=== PATIENT | female | born 1955 | race Two or more races ===

== ENCOUNTER 2024-02-05 19:51 | Inpatient (IN) | payer MEDICARE, OTHER ==
[~2024-02-05] VITALS: Ht 162.6 cm; Wt 88.1 kg
[2024-02-05 20:34] LABS: BASOPHILS # (AUTO) 0.1 K/uL (0.0-0.2); BASOPHILS % (AUTO) 1.2 % (0.0-2.0); EOSINOPHILS # (AUTO) 0.3 K/uL (0.0-0.7); EOSINOPHILS % (AUTO) 2.4 % (0.0-6.0); HEMATOCRIT 36 % (33-45); HEMOGLOBIN 12.2 g/dL (11.5-14.8); LYMPHOCYTES # (AUTO) 2.7 K/uL (0.8-4.8); LYMPHOCYTES % (AUTO) 24.9 % (20.0-44.0); MEAN CORPUSCULAR HEMOGLOBIN 32 PG (26.0-33.0); MEAN CORPUSCULAR HGB CONC 35 g/dl (31.0-36.0); MEAN CORPUSCULAR VOLUME 92 fL (82-100); MONOCYTES # (AUTO) 0.7 K/uL (0.1-1.30); MONOCYTES % (AUTO) 6.7 % (2.0-12.0); NEUTROPHILS # (AUTO) 7.1 K/uL (1.8-8.9); NEUTROPHILS % (AUTO) 64.8 % (43.0-81.0); PLATELET COUNT (AUTO) 303 K/uL (150-450); RED BLOOD CELL COUNT(AUTO) 3.86 MIL/uL (4.0-5.2); RED CELL DISTRIBUTION WIDTH 14.6 % (11.5-15.0); WHITE BLOOD COUNT (AUTO) 10.9 K/uL (4.3-11.0)
[2024-02-05 20:42] LABS: CALCIUM, SERUM 8.9 mg/dL (8.5-10.1); CARBON DIOXIDE 25 mmol/L (21-32); CHLORIDE 96 mmol/L (98-107); GLUCOSE 112 mg/dL (74-106); POTASSIUM 5.4 mmol/L (3.5-5.1); SODIUM SERUM 129 mmol/L (136-145); UREA NITROGEN, BLOOD 26 mg/dL (7-18)
[2024-02-05 20:55] LABS: ALANINE AMINOTRANSFERASE 22 U/L (12-78); ALBUMIN 3.5 g/dL (3.4-5.0); ALKALINE PHOSPHATASE 67 U/L (46-116); ASPARTATE AMINOTRANSFERASE 31 U/L (15-37); BILIRUBIN,DIRECT 0.1 mg/dL (0.0-0.2); BILIRUBIN,TOTAL 0.5 mg/dL (0.2-1.0); NT-PRO BNP 1044 pg/mL (0-125); TOTAL PROTEIN, SERUM 6.6 g/dL (6.4-8.2)
[2024-02-05] MEDS ORDERED: FUROSEMIDE 40 MG/4 ML VIAL ONE (21:24)
[2024-02-05] MEDS ORDERED: SODIUM ZIRCONIUM CYCLOSILICATE 10 GM POWD.PACK ONE (21:24)
[2024-02-05] MEDS: ALBUTEROL FS 2.5 MG/3 ML VIAL.NEB NEB ONE (21:30)
[2024-02-05] MEDS: FUROSEMIDE 40 MG/4 ML VIAL IV ONE (21:38)
[2024-02-05] MEDS: SODIUM ZIRCONIUM CYCLOSILICATE 10 GM POWD.PACK PO ONE (21:38)
[2024-02-05] MEDS ORDERED: ALBUTEROL FS 2.5 MG/3 ML VIAL.NEB ONE (21:57)
[2024-02-05 22:00] LABS: APPEARANCE,URINE CLEAR (CLEAR); BILIRUBIN,URINE NEGATIVE (NEGATIVE); BLOOD, URINE NEGATIVE Ery/uL (NEGATIVE); COLOR,URINE YELLOW (YELLOW); KETONES,URINE NEGATIVE (NEGATIVE); LEUKOCYTE ESTERASE ,URINE NEGATIVE (NEGATIVE); NITRITE, URINE NEGATIVE (NEGATIVE); PROTEIN,URINE NEGATIVE (NEGATIVE); UGLUCOSE NEGATIVE (NEGATIVE); UROBILINOGEN,URINE 0.2 EU/dL (0.2)
[2024-02-05 22:05] VITALS: O2SAT 99
[2024-02-05 22:15] VITALS: O2SAT 100
[2024-02-05] MEDS: IV NS 0.9% 1,000 ML BAG IV ONE (22:27)
[2024-02-06] VITALS (8 sets, daily range): BP systolic 129–160; BP diastolic 57–81; TEMP 97.7–98.2; O2SAT 98–100
[2024-02-06] MEDS ORDERED: METOPROLOL TARTRATE INJ 5 MG/5 ML AMPUL IVP SCH ×2 (01:30→02:00)
[2024-02-06] MEDS ORDERED: MAG HYDROX/AL HYDROX/SIMETH 30 ML UDC PO PRN (02:00)
[2024-02-06] MEDS ORDERED: ASPI-1420 PO (02:50)
[2024-02-06] MEDS ORDERED: ATOR80TA PO (02:50)
[2024-02-06] MEDS ORDERED: FAMO20TA8 PO (02:50)
[2024-02-06] MEDS ORDERED: CLON-418 PO (02:50)
[2024-02-06] MEDS ORDERED: CARV25TA2 PO (02:50)
[2024-02-06] MEDS ORDERED: VALS320T2 PO (02:50)
[2024-02-06] MEDS ORDERED: HYDR-4077 PO (02:50)
[2024-02-06] MEDS ORDERED: METOPROLOL TARTRATE 50 MG TABLET PO SCH (03:00)
[2024-02-06] MEDS: ENOXAPARIN SODIUM 100 MG/ML DISP.SYRIN SQ SCH (03:06)
[2024-02-06] MEDS: ACETAMINOPHEN 325 MG TABLET PO PRN (06:51)
[2024-02-06 07:01] LABS: BASOPHILS # (AUTO) 0.1 K/uL (0.0-0.2); BASOPHILS % (AUTO) 0.8 % (0.0-2.0); EOSINOPHILS # (AUTO) 0.2 K/uL (0.0-0.7); EOSINOPHILS % (AUTO) 2.1 % (0.0-6.0); HEMATOCRIT 37 % (33-45); HEMOGLOBIN 12.4 g/dL (11.5-14.8); LYMPHOCYTES # (AUTO) 2.7 K/uL (0.8-4.8); LYMPHOCYTES % (AUTO) 23.4 % (20.0-44.0); MEAN CORPUSCULAR HEMOGLOBIN 31 PG (26.0-33.0); MEAN CORPUSCULAR HGB CONC 34 g/dl (31.0-36.0); MEAN CORPUSCULAR VOLUME 91 fL (82-100); MONOCYTES # (AUTO) 0.8 K/uL (0.1-1.30); NEUTROPHILS # (AUTO) 7.7 K/uL (1.8-8.9); NEUTROPHILS % (AUTO) 66.7 % (43.0-81.0); PLATELET COUNT (AUTO) 276 K/uL (150-450); RED BLOOD CELL COUNT(AUTO) 4.02 MIL/uL (4.0-5.2); RED CELL DISTRIBUTION WIDTH 14.3 % (11.5-15.0); WHITE BLOOD COUNT (AUTO) 11.5 K/uL (4.3-11.0)
[2024-02-06 07:14] LABS: CALCIUM, SERUM 8.5 mg/dL (8.5-10.1); CREATININE 0.8 mg/dL (0.6-1.3); MAGNESIUM 1.6 mg/dL (1.8-2.4); PHOSPHORUS 3.3 mg/dL (2.5-4.9); POTASSIUM 3.8 mmol/L (3.5-5.1)
[2024-02-06] MEDS: FAMOTIDINE (20 MG) 20 MG TABLET PO SCH (09:00)
[2024-02-06] MEDS: METOPROLOL TARTRATE 50 MG TABLET PO SCH (09:00)
[2024-02-06] MEDS ORDERED: CLON0.1T PO (09:11)
[2024-02-06 09:17] LABS: CHOLESTEROL 121 mg/dL (<200); HDL CHOLESTEROL 64 mg/dL (40-60); LDL 43 mg/dL (0-99); TRIGLYCERIDES 95 mg/dL (30-150)
[2024-02-06] MEDS: ASPIRIN EC 81 MG TABLET.DR PO SCH (09:19)
[2024-02-06] MEDS: hydrALAZINE HCL 50 MG TABLET PO SCH (09:19)
[2024-02-06] MEDS: PANTOPRAZOLE 40 MG VIAL IV SCH (09:19)
[2024-02-06] MEDS: LOSARTAN POTASSIUM 50 MG TABLET PO SCH (09:23)
[2024-02-06] MEDS: ONDANSETRON HCL/PF 4 MG/2 ML VIAL IVP PRN (09:51)
[2024-02-06] MEDS: MAGNESIUM OXIDE 400 MG TABLET PO ONE (10:52)
[2024-02-06] MEDS ORDERED: IV NS 0.9% 250 ML IV ONE ×2 (17:02→17:25)
[2024-02-06] MEDS ORDERED: IOHEXOL-350 100 ML VIAL IV ONE ×2 (17:02→17:25)
[2024-02-06] MEDS ORDERED: METOPROLOL TARTRATE INJ 5 MG/5 ML AMPUL ONE (17:03)
[2024-02-06] MEDS: NITROGLYCERIN 0.4 MG/TAB BOTTLE SL ONE (17:18)
[2024-02-06] MEDS: METOPROLOL TARTRATE INJ 5 MG/5 ML AMPUL IVP PRN (17:38)
[2024-02-06] MEDS: ENSURE ENLIVE CHOC 237 ML CAN PO SCH (18:05)
[2024-02-06] MEDS: CARVEDILOL 12.5 MG TABLET PO SCH (21:57)
[2024-02-07] VITALS: BP 107/65; TEMP 97.7; O2SAT 99
[2024-02-07 04:00] VITALS: BP 144/63; TEMP 97.7; O2SAT 100
[2024-02-07 07:02] LABS: BASOPHILS # (AUTO) 0.1 K/uL (0.0-0.2); BASOPHILS % (AUTO) 0.8 % (0.0-2.0); EOSINOPHILS # (AUTO) 0.2 K/uL (0.0-0.7); EOSINOPHILS % (AUTO) 2.3 % (0.0-6.0); HEMATOCRIT 36 % (33-45); HEMOGLOBIN 12.5 g/dL (11.5-14.8); LYMPHOCYTES % (AUTO) 29.4 % (20.0-44.0); MEAN CORPUSCULAR HEMOGLOBIN 32 PG (26.0-33.0); MEAN CORPUSCULAR HGB CONC 34 g/dl (31.0-36.0); MEAN CORPUSCULAR VOLUME 92 fL (82-100); MONOCYTES # (AUTO) 0.9 K/uL (0.1-1.30); MONOCYTES % (AUTO) 9.2 % (2.0-12.0); NEUTROPHILS # (AUTO) 5.9 K/uL (1.8-8.9); NEUTROPHILS % (AUTO) 58.3 % (43.0-81.0); PLATELET COUNT (AUTO) 314 K/uL (150-450); RED BLOOD CELL COUNT(AUTO) 3.96 MIL/uL (4.0-5.2); RED CELL DISTRIBUTION WIDTH 14.5 % (11.5-15.0); WHITE BLOOD COUNT (AUTO) 10.1 K/uL (4.3-11.0)
[2024-02-07 07:18] LABS: CALCIUM, SERUM 8.9 mg/dL (8.5-10.1); MAGNESIUM 1.8 mg/dL (1.8-2.4); PHOSPHORUS 3.4 mg/dL (2.5-4.9); POTASSIUM 4.1 mmol/L (3.5-5.1)
[2024-02-07 08:00] VITALS: BP 131/70; TEMP 97.8; O2SAT 100
[2024-02-07] MEDS: ATORVASTATIN 40 MG TABLET PO SCH (08:11)
[2024-02-07] MEDS: VALSARTAN 80 MG TABLET PO SCH (08:12)
[2024-02-07] MEDS: PANTOPRAZOLE 40 MG TABLET.DR PO SCH (08:29)
[2024-02-07 09:31] LABS: THYROID STIMULATING HORMONE 2.06 uIU/mL (0.358-3.74)
[2024-02-07 12:00] VITALS: BP 111/81; TEMP 97.6; O2SAT 100
[2024-02-07] MEDS: MAGNESIUM HYDROXIDE 30 ML UDC PO PRN (12:18)
[2024-02-07 16:00] VITALS: BP 117/63; TEMP 97.4; O2SAT 100
[2024-02-07 20:00] VITALS: BP 146/64; TEMP 97.9; O2SAT 98
[2024-02-08] VITALS (7 sets, daily range): BP systolic 131–152; BP diastolic 52–98; TEMP 97.7–98.4; O2SAT 96–100
[2024-02-08 07:30] LABS: BASOPHILS # (AUTO) 0.1 K/uL (0.0-0.2); BASOPHILS % (AUTO) 0.9 % (0.0-2.0); EOSINOPHILS # (AUTO) 0.2 K/uL (0.0-0.7); EOSINOPHILS % (AUTO) 2.8 % (0.0-6.0); HEMATOCRIT 36 % (33-45); HEMOGLOBIN 12.1 g/dL (11.5-14.8); LYMPHOCYTES # (AUTO) 2.4 K/uL (0.8-4.8); LYMPHOCYTES % (AUTO) 29.3 % (20.0-44.0); MEAN CORPUSCULAR HEMOGLOBIN 31 PG (26.0-33.0); MEAN CORPUSCULAR HGB CONC 34 g/dl (31.0-36.0); MEAN CORPUSCULAR VOLUME 91 fL (82-100); MONOCYTES # (AUTO) 0.8 K/uL (0.1-1.30); MONOCYTES % (AUTO) 9.6 % (2.0-12.0); NEUTROPHILS # (AUTO) 4.7 K/uL (1.8-8.9); NEUTROPHILS % (AUTO) 57.4 % (43.0-81.0); PLATELET COUNT (AUTO) 261 K/uL (150-450); RED CELL DISTRIBUTION WIDTH 14.5 % (11.5-15.0); WHITE BLOOD COUNT (AUTO) 8.2 K/uL (4.3-11.0)
[2024-02-08 07:35] LABS: INR 0.99 (0.91-1.10); PARTIAL THROMBOPLASTIN TIME 20.8 SEC (24.3-34.3); PROTHROMBIN TIME 10.5 SECS (9.2-11.1)
[2024-02-08 07:38] LABS: CALCIUM, SERUM 8.3 mg/dL (8.5-10.1); MAGNESIUM 2.3 mg/dL (1.8-2.4); POTASSIUM 4.2 mmol/L (3.5-5.1)
[2024-02-08] MEDS ORDERED: IV SET PRIMARY PUMP SET 1 EA INFUS.SET MC ONE (08:55)
[2024-02-08] MEDS ORDERED: IODIXANOL 150 ML IV ONE (08:55)
[2024-02-08] MEDS ORDERED: LIDOCAINE HCL/MPF 1% 30 ML VIAL IJ ONE (08:55)
[2024-02-08] MEDS ORDERED: IV NS 0.9% 1,000 ML ONE (08:55)
[2024-02-09] VITALS: BP 135/51; TEMP 97.8; O2SAT 99
[2024-02-09 04:00] VITALS: BP 150/62; TEMP 98; O2SAT 98
[2024-02-09 06:38] LABS: BASOPHILS # (AUTO) 0.1 K/uL (0.0-0.2); BASOPHILS % (AUTO) 0.6 % (0.0-2.0); EOSINOPHILS # (AUTO) 0.2 K/uL (0.0-0.7); EOSINOPHILS % (AUTO) 2.8 % (0.0-6.0); HEMATOCRIT 34 % (33-45); HEMOGLOBIN 11.8 g/dL (11.5-14.8); LYMPHOCYTES # (AUTO) 2.1 K/uL (0.8-4.8); LYMPHOCYTES % (AUTO) 26.5 % (20.0-44.0); MEAN CORPUSCULAR HEMOGLOBIN 31 PG (26.0-33.0); MEAN CORPUSCULAR HGB CONC 34 g/dl (31.0-36.0); MEAN CORPUSCULAR VOLUME 91 fL (82-100); MONOCYTES # (AUTO) 0.7 K/uL (0.1-1.30); MONOCYTES % (AUTO) 8.7 % (2.0-12.0); NEUTROPHILS # (AUTO) 4.9 K/uL (1.8-8.9); NEUTROPHILS % (AUTO) 61.4 % (43.0-81.0); PLATELET COUNT (AUTO) 257 K/uL (150-450); RED BLOOD CELL COUNT(AUTO) 3.78 MIL/uL (4.0-5.2); RED CELL DISTRIBUTION WIDTH 14.2 % (11.5-15.0)
[2024-02-09 07:03] LABS: CALCIUM, SERUM 8.3 mg/dL (8.5-10.1); CREATININE 0.9 mg/dL (0.6-1.3); MAGNESIUM 2.3 mg/dL (1.8-2.4); PHOSPHORUS 3.5 mg/dL (2.5-4.9); POTASSIUM 4.5 mmol/L (3.5-5.1)
[2024-02-09 07:10] LABS: THYROID STIMULATING HORMONE 1.27 uIU/mL (0.358-3.74); URIC ACID 4.9 mg/dL (2.6-7.2)
[2024-02-09 08:11] VITALS: BP 168/51; TEMP 98.1; O2SAT 99
[2024-02-09 12:10] VITALS: BP 155/54; TEMP 98.4; O2SAT 98
[2024-02-09 16:35] VITALS: BP 179/68; TEMP 97.9; O2SAT 96
[2024-02-09] MEDS: CLONIDINE HCL 0.1 MG TABLET PO PRN (17:46)
[2024-02-09 20:00] VITALS: BP 139/52; TEMP 97.7; O2SAT 97
[2024-02-10] VITALS: BP 130/50; TEMP 98.1; O2SAT 98
[2024-02-10 04:00] VITALS: BP 130/50; TEMP 98.1; O2SAT 98
[2024-02-10 08:00] VITALS: BP 167/63; TEMP 97.9; O2SAT 99
[2024-02-10 12:00] VITALS: BP 156/53; TEMP 98.1; O2SAT 100
[2024-02-10 16:00] VITALS: BP 153/66; TEMP 98.1; O2SAT 100
[2024-02-10 20:00] VITALS: BP 144/64; TEMP 97.7; O2SAT 100
[2024-02-11] VITALS (8 sets, daily range): BP systolic 123–158; BP diastolic 46–84; TEMP 97.7–98.1; O2SAT 98–100
[2024-02-11 07:08] LABS: BASOPHILS # (AUTO) 0.1 K/uL (0.0-0.2); BASOPHILS % (AUTO) 0.6 % (0.0-2.0); EOSINOPHILS # (AUTO) 0.3 K/uL (0.0-0.7); EOSINOPHILS % (AUTO) 2.4 % (0.0-6.0); HEMATOCRIT 33 % (33-45); HEMOGLOBIN 11.4 g/dL (11.5-14.8); LYMPHOCYTES # (AUTO) 1.9 K/uL (0.8-4.8); LYMPHOCYTES % (AUTO) 16.4 % (20.0-44.0); MEAN CORPUSCULAR HEMOGLOBIN 32 PG (26.0-33.0); MEAN CORPUSCULAR HGB CONC 34 g/dl (31.0-36.0); MEAN CORPUSCULAR VOLUME 92 fL (82-100); MONOCYTES # (AUTO) 0.9 K/uL (0.1-1.30); MONOCYTES % (AUTO) 7.9 % (2.0-12.0); NEUTROPHILS # (AUTO) 8.2 K/uL (1.8-8.9); NEUTROPHILS % (AUTO) 72.7 % (43.0-81.0); PLATELET COUNT (AUTO) 245 K/uL (150-450); RED CELL DISTRIBUTION WIDTH 14.1 % (11.5-15.0); WHITE BLOOD COUNT (AUTO) 11.3 K/uL (4.3-11.0)
[2024-02-11 08:26] LABS: BILIRUBIN,TOTAL 0.5 mg/dL (0.2-1.0); CALCIUM, SERUM 8.9 mg/dL (8.5-10.1); CREATININE 0.8 mg/dL (0.6-1.3); MAGNESIUM 2.3 mg/dL (1.8-2.4); PHOSPHORUS 3.4 mg/dL (2.5-4.9); POTASSIUM 4.6 mmol/L (3.5-5.1)
[2024-02-12] VITALS: BP 150/62; TEMP 97.9; O2SAT 98
[2024-02-12 04:00] VITALS: BP 148/63; TEMP 98; O2SAT 98
[2024-02-12 08:00] VITALS: BP 153/63; TEMP 98.1; O2SAT 100
[2024-02-12 12:00] VITALS: BP 121/42; TEMP 97.7; O2SAT 100
[2024-02-12 16:00] VITALS: BP 113/57; TEMP 98.2; O2SAT 98
[2024-02-12] MEDS: ENOXAPARIN SODIUM 100 MG/ML DISP.SYRIN SQ SCH (16:02)
[2024-02-12 20:00] VITALS: BP 135/94; TEMP 97.7; O2SAT 100
[2024-02-13] VITALS (18 sets, daily range): BP systolic 95–181; BP diastolic 49–89; TEMP 97.3–98.1; O2SAT 98–100
[2024-02-13 06:57] LABS: BASOPHILS # (AUTO) 0.1 K/uL (0.0-0.2); BASOPHILS % (AUTO) 0.9 % (0.0-2.0); EOSINOPHILS # (AUTO) 0.2 K/uL (0.0-0.7); EOSINOPHILS % (AUTO) 3.2 % (0.0-6.0); HEMATOCRIT 33 % (33-45); HEMOGLOBIN 11.5 g/dL (11.5-14.8); LYMPHOCYTES % (AUTO) 26.6 % (20.0-44.0); MEAN CORPUSCULAR HEMOGLOBIN 32 PG (26.0-33.0); MEAN CORPUSCULAR HGB CONC 35 g/dl (31.0-36.0); MEAN CORPUSCULAR VOLUME 92 fL (82-100); MONOCYTES # (AUTO) 0.7 K/uL (0.1-1.30); MONOCYTES % (AUTO) 9.7 % (2.0-12.0); NEUTROPHILS # (AUTO) 4.4 K/uL (1.8-8.9); NEUTROPHILS % (AUTO) 59.6 % (43.0-81.0); PLATELET COUNT (AUTO) 233 K/uL (150-450); RED BLOOD CELL COUNT(AUTO) 3.61 MIL/uL (4.0-5.2); RED CELL DISTRIBUTION WIDTH 14.1 % (11.5-15.0); WHITE BLOOD COUNT (AUTO) 7.4 K/uL (4.3-11.0)
[2024-02-13 07:02] LABS: INR 0.97 (0.91-1.10); PROTHROMBIN TIME 10.3 SECS (9.2-11.1)
[2024-02-13 07:28] LABS: CALCIUM, SERUM 8.7 mg/dL (8.5-10.1); CREATININE 0.7 mg/dL (0.6-1.3); POTASSIUM 4.7 mmol/L (3.5-5.1)
[2024-02-13] MEDS ORDERED: IV NS 0.9% 500 ML IV ONE (14:28)
[2024-02-13] MEDS ORDERED: LIDOCAINE HCL/MPF 1% 30 ML VIAL IJ ONE (14:29)
[2024-02-13] MEDS ORDERED: IV SET PRIMARY PUMP SET 1 EA INFUS.SET MC ONE (14:29)
[2024-02-13] MEDS ORDERED: IODIXANOL 150 ML IV ONE (14:29)
[2024-02-13] MEDS ORDERED: NITROGLYCERIN IN 5 % DEXTROSE 250 ML IV ONE (14:46)
[2024-02-13] MEDS ORDERED: MIDAZOLAM HCL 2 MG/2ML VIAL ONE (15:09)
[2024-02-13] MEDS ORDERED: FENTANYL PF 100MCG/2ML AMPUL ONE (15:09)
[2024-02-13] MEDS ORDERED: hydrALAZINE HCL IV 20 MG VIAL ONE (15:29)
[2024-02-13] MEDS ORDERED: ONDANSETRON HCL/PF 4 MG/2 ML VIAL ONE (15:58)
[2024-02-13] MEDS: ONDANSETRON HCL/PF 4 MG/2 ML VIAL IV PRN (16:17)
[2024-02-14] VITALS: BP 153/53; TEMP 97.5; O2SAT 98
[2024-02-14 04:00] VITALS: BP 133/51; TEMP 97.1; O2SAT 98
[2024-02-14 08:00] VITALS: BP 138/58; TEMP 97.9; O2SAT 98
[2024-02-14 12:00] VITALS: BP 125/71; TEMP 98.7; O2SAT 98
== END 2024-02-14 16:02 | disposition home or self-care (01) | DRG 281 ==
LOC: ER 19:53 → TELE1 02-06 00:46 → MEDSG1 02-06 01:25 → TELE1 02-06 02:27 → ICU 02-13 16:14 → TELE1 02-13 23:27
PROVIDERS: ATTEND Internal Medicine
PROC: 4A023N7 Measurement of Cardiac Sampling and Pressure, Left Heart, Percutaneous Approach (ICD-10-PCS; principal; 2024-02-13)
PROC: B211YZZ Fluoroscopy of Multiple Coronary Arteries using Other Contrast (ICD-10-PCS; 2024-02-13)
PROC: B41GYZZ Fluoroscopy of Left Lower Extremity Arteries using Other Contrast (ICD-10-PCS; 2024-02-13)
DX: I25.110 Atherosclerotic heart disease of native coronary artery with unstable angina pectoris (principal); E87.1 Hypo-osmolality and hyponatremia; I21.A1 Myocardial infarction type 2; I12.9 Hypertensive chronic kidney disease with stage 1 through stage 4 chronic kidney disease, or unspecified chronic kidney disease; N18.9 Chronic kidney disease, unspecified; E87.5 Hyperkalemia; I25.2 Old myocardial infarction; Z95.5 Presence of coronary angioplasty implant and graft; E78.5 Hyperlipidemia, unspecified; I70.8 Atherosclerosis of other arteries; Z88.6 Allergy status to analgesic agent; R73.03 Prediabetes
CPT/HCPCS: 36415; 71045-TC; 75574; 80048-TC; 80053-TC; 80061-TC; 80076-TC; 83735-TC; 83880; 84100-TC; 84443-TC; 84484-TC; 84550-TC; 85025-TC; 85610-TC; 85730-TC; 97110-TC; 97116-TC; 97530-TC; A4223; G0378; J0360; J1644; J1650; J1940; J2250; J2405; J2470; J3010; J3490; J7030; J7040; J7050; Q9967